=== PATIENT | female | born 1970 | race American Indian/Alaskan Native ===

== ENCOUNTER 2020-08-12 14:27 | Emergency (ER) | payer SELFPAY ==
--- NOTE | 2020-08-12 17:02 | Event Note ---
ED Screening Note ED Screening Note: Patient presents with urinary frequency, dry mouth, lightheadedness, one episode of vomiting She denies any fever, diarrhea, chest pain, shortness of breath, abdominal pain, dysuria No past medical history Allergy to penicillin States she went through menopause This initial assessment/diagnostic orders/clinical plan/treatment(s) is/are subject to change based on patients health status, clinical progression and re- assessment by fellow clinical providers in the ED. Further treatment and workup at subsequent clinical providers discretion. Patient/guardian urged not to elope from the ED as their condition may be serious if not clinically assessed and managed. Initial orders include: Labs Urine Accu-Chek
[2020-08-12 17:22] LABS: Bilirubin,Urine NEG (Negative); Blood,Urine SM (Negative); Color,Urine Colorless (Yellow); Hyaline Casts,Urine 1 /LPF; Mucus,Urine FEW /HPF; Protein,Urine <15 mg/dL mg/dL (Negative); Urobilinogen,Urine < 2.0 mg/dL (<2.0)
[2020-08-12] MEDS ORDERED: SODIUM CHLORIDE 0.9% 1000 ML 1,000 ML IV ONE ×2 (18:09)
--- NOTE | 2020-08-12 18:14 | Emergency Department Report ---
HPI - General Chief Complaint: Dizziness Time Seen by Provider: 08/12/20 16:59 - HPI HPI: Room 18 The patient is a 50-year-old female present with a chief complaint of polyuria and polydipsia. Patient states for the past 2 weeks she has been urinating very frequently had a dry mouth and dizziness. Patient admits to blurred vision. Patient admits to increased thirst. Patient denies family history of diabetes ED Past Medical Hx - Past Medical History Previous Medical History?: Yes Additional medical history: vertigo, anemia - Surgical History Past Surgical History?: Yes Additional Surgical History: . hysterectomy - Family History Family history: no significant - Social History Smoking Status: Never Smoker Substance Use Type: None (Denies illicit drug use), Alcohol (Occasional) - Medications Home Medications: Home Medications Medication Instructions Recorded Confirmed Last Taken Type metFORMIN [Glucophage] 500 mg PO BID #60 tablet 08/12/20 Unknown Rx ED Review of Systems ROS: Stated complaint: DIZZY Other details as noted in HPI Constitutional: no symptoms reported Respiratory: no symptoms reported Endocrine: increased thirst, increased urine Genitourinary: frequency Physical Exam - Physical Exam Vital Signs: Vital Signs 08/12/20 14:37 Temperature 98.5 F Pulse Rate 121 H Respiratory 18 Rate Blood Pressure 124/86 [Right] O2 Sat by Pulse 95 Oximetry Physical Exam: GENERAL: The patient is well-developed well-nourished female lying on stretcher not appearing to be in acute distress. [] HEENT: Normocephalic. Atraumatic. Extraocular motions are intact. NECK: Supple. Trachea midline CHEST/LUNGS: Clear to auscultation. There is no respiratory distress noted. HEART/CARDIOVASCULAR: Regular. There is tachycardia. There is no gallop rub or murmur. ABDOMEN: Abdomen is soft, nontender. Patient has normal bowel sounds. There is no abdominal distention. SKIN: There is no rash. There is no diaphoresis. NEURO: The patient is awake, alert, and oriented. The patient is cooperative. The patient has normal speech MUSCULOSKELETAL: There is no evidence of acute injury. ED Course Vital Signs 08/12/20 14:37 Temperature 98.5 F Pulse Rate 121 H Respiratory 18 Rate Blood Pressure 124/86 [Right] O2 Sat by Pulse 95 Oximetry ED Medical Decision Making - Lab Data Result diagrams: 08/12/20 17:15 08/12/20 17:15 Laboratory Tests 08/12/20 08/12/20 08/12/20 17:15 17:15 17:15 WBC 12.4 H RBC 5.64 H Hgb 14.8 H Hct 45.2 H MCV 80 MCH 26 L MCHC 33 RDW 13.2 Plt Count 260 Lymph % (Auto) 17.6 Hitchcock % (Auto) 4.9 Eos % (Auto) 0.4 Baso % (Auto) 0.5 Lymph # (Auto) 2.2 Hitchcock # (Auto) 0.6 Eos # (Auto) 0.1 Baso # (Auto) 0.1 Seg Neutrophils % 76.6 H Seg Neutrophils # 9.5 H VBG pH Sodium 120 L Potassium 4.6 Chloride 80.2 L Carbon Dioxide 21 L Anion Gap 23 BUN 19 H Creatinine 1.1 Estimated GFR > 60 BUN/Creatinine Ratio 17 Glucose 829 H* POC Glucose Calcium 9.6 Magnesium 2.30 Total Bilirubin 0.40 AST 26 ALT 48 Alkaline Phosphatase 195 H Total Creatine Kinase 379 H Total Protein 8.8 H Albumin 4.5 Albumin/Globulin Ratio 1.0 TSH 1.050 Urine Color Urine Turbidity Urine pH Ur Specific [place] Urine Protein Urine Glucose (UA) Urine Ketones Urine Blood Urine Nitrite Urine Bilirubin Urine Urobilinogen Ur Leukocyte Esterase Urine WBC (Auto) Urine RBC (Auto) U Epithel Cells (Auto) Hyaline Casts Urine Mucus 08/12/20 08/12/20 08/12/20 17:15 17:24 20:19 WBC RBC Hgb Hct MCV MCH MCHC RDW Plt Count Lymph % (Auto) Hitchcock % (Auto) Eos % (Auto) Baso % (Auto) Lymph # (Auto) Hitchcock # (Auto) Eos # (Auto) Baso # (Auto) Seg Neutrophils % Seg Neutrophils # VBG pH 7.338 Sodium Potassium Chloride Carbon Dioxide Anion Gap BUN Creatinine Estimated GFR BUN/Creatinine Ratio Glucose POC Glucose > 500 H 458 H Calcium Magnesium Total Bilirubin AST ALT Alkaline Phosphatase Total Creatine Kinase Total Protein Albumin Albumin/Globulin Ratio TSH Urine Color Urine Turbidity Urine pH Ur Specific [place] Urine Protein Urine Glucose (UA) Urine Ketones Urine Blood Urine Nitrite Urine Bilirubin Urine Urobilinogen Ur Leukocyte Esterase Urine WBC (Auto) Urine RBC (Auto) U Epithel Cells (Auto) Hyaline Casts Urine Mucus 08/12/20 08/12/20 08/12/20 21:22 21:56 Unknown WBC RBC Hgb Hct MCV MCH MCHC RDW Plt Count Lymph % (Auto) Hitchcock % (Auto) Eos % (Auto) Baso % (Auto) Lymph # (Auto) Hitchcock # (Auto) Eos # (Auto) Baso # (Auto) Seg Neutrophils % Seg Neutrophils # VBG pH Sodium Potassium Chloride Carbon Dioxide Anion Gap BUN Creatinine Estimated GFR BUN/Creatinine Ratio Glucose POC Glucose 338 H 320 H Calcium Magnesium Total Bilirubin AST ALT Alkaline Phosphatase Total Creatine Kinase Total Protein Albumin Albumin/Globulin Ratio TSH Urine Color Colorless Urine Turbidity Clear Urine pH 6.0 Ur Specific [place] 1.023 Urine Protein <15 mg/dl Urine Glucose (UA) >=500 Urine Ketones Neg Urine Blood Sm Urine Nitrite Neg Urine Bilirubin Neg Urine Urobilinogen < 2.0 Ur Leukocyte Esterase Neg Urine WBC (Auto) 3.0 Urine RBC (Auto) 7.0 U Epithel Cells (Auto) 1.0 Hyaline Casts 1 Urine Mucus Few - Differential Diagnosis New onset diabetes, DKA Critical care attestation.: If time is entered above; I have spent that time in minutes in the direct care of this critically ill patient, excluding procedure time. ED Disposition Clinical Impression: Diabetes mellitus, new onset, Hyperglycemia Disposition: -01 TO HOME OR SELFCARE Is pt being admited?: No Does the pt Need Aspirin: No Condition: Stable Instructions: Diabetes Mellitus Type 2 in Adults (ED), How to Check Your Blood Sugar (ED), Managing Diabetes During Sick Days (ED) Additional Instructions: Return to the emergency department should you develop worsening symptoms, inability to tolerate food or liquids, high fever or any other concerns Prescriptions: metFORMIN [Glucophage] 500 mg PO BID #60 tablet Referrals: [facility] [Provider Group] - 3-5 Days (Please follow-up at the [facility] for further management. It is important that you follow-up for proper management of your medication and control of your blood sugar) Time of Disposition: 22:16
[2020-08-12 19:11] LABS: Basophils # (Auto) 0.1 K/mm3 (0.0-0.1); Basophils % (Auto) 0.5 % (0.0-1.8); Eosinophils # (Auto) 0.1 K/mm3 (0.0-0.4); Eosinophils % (Auto) 0.4 % (0.0-4.3); Hematocrit 45.2 % (30.3-42.9); Hemoglobin 14.8 gm/dl (10.1-14.3); Lymphocytes # (Auto) 2.2 K/mm3 (1.2-5.4); Lymphocytes % (Auto) 17.6 % (13.4-35.0); Mean Corpuscular HGB Conc 33 % (30-34); Mean Corpuscular Volume 80 fl (79-97); Monocytes # (Auto) 0.6 K/mm3 (0.0-0.8); Monocytes % (Auto) 4.9 % (0.0-7.3); Platelet Count 260 K/mm3 (140-440); Red Blood Count 5.64 M/mm3 (3.65-5.03); Red Cell Distribution Width 13.2 % (13.2-15.2)
[2020-08-12 19:27] LABS: Alanine Aminotransferase 48 units/L (7-56); Albumin 4.5 g/dL (3.9-5); BUN/Creatinine Ratio 17; Blood Urea Nitrogen 19 mg/dL (7-17); Calcium 9.6 mg/dL (8.4-10.2); Hemolysis Index 37
[2020-08-12] MEDS ORDERED: INSULIN REGULAR, HUMAN 100 UNIT/ML 3ML VIAL IV ONE ×3 (20:04→21:41)
[2020-08-12 22:09] VITALS: BP 155/87
== END 2020-08-12 23:00 | disposition home or self-care (01) ==
LOC: ED 14:27
DX: E11.65 Type 2 diabetes mellitus with hyperglycemia (principal); Z90.710 Acquired absence of both cervix and uterus; Z86.2 Personal history of diseases of the blood and blood-forming organs and certain disorders involving the immune mechanism; Z88.0 Allergy status to penicillin
CPT/HCPCS: 36415; 80053; 81001; 82550; 82805; 82962; 83735; 84443; 85025; 93005; 96361; 96374; 96376; 99283; J7030; J1815